=== PATIENT | male | born 1985 | race Caucasian/White ===

== ENCOUNTER → 2017-11-26 | Outpatient (CLI) | payer MEDICAID | LOC: FIMAGING 13:32 | PROVIDERS: ATTEND Registered Nurse | DX: M79.641 Pain in right hand (principal); M54.5 Low back pain ==

== ENCOUNTER → 2017-12-11 | Outpatient (CLI) | payer OTHER, MEDICAID | LOC: FIMAGING 18:45 | PROVIDERS: ATTEND Family Medicine | DX: M43.17 Spondylolisthesis, lumbosacral region (principal); M48.07 Spinal stenosis, lumbosacral region ==

== ENCOUNTER → 2018-02-12 | Outpatient (CLI) | payer OTHER, MEDICAID | LOC: FIMAGING 14:54 | PROVIDERS: ATTEND Family Medicine | DX: S06.0X9D Concussion with loss of consciousness of unspecified duration, subsequent encounter (principal); V89.2XXD Person injured in unspecified motor-vehicle accident, traffic, subsequent encounter ==